=== PATIENT | female | born 1995 | race African-American/Black ===

== ENCOUNTER 2016-11-15 12:04 | Emergency (ER) | payer OTHER ==
[~2016-11-15] VITALS: Ht 167.6 cm; Wt 85.3 kg
[~2016-11-15 12:04] MED LIST: ALBU2.5V14 IH; ALBU2.5V5 NEB; ALBU8.5H6 IH; AZIT500T PO; AZIT500T2 PO; BUDE10.2 IH; BUDE10.22 IH; FLUT9.9S NS; METH4TAB2 PO
[2016-11-15] MEDS ORDERED: IPRATRPIUM/ALBUTEROL 0.5/2.5MG 3 ML NEBU. NEB ONE (12:30)
[2016-11-15] MEDS ORDERED: predniSONE 10 MG TABLET PO ONE (12:45)
[2016-11-15] MEDS ORDERED: PRED50TA PO (12:56)
--- NOTE | 2016-11-15 12:57 | PHYS DOC ---
Past Medical History Past Medical History: Asthma Past Surgical History: No Surgical History Alcohol Use: None Drug Use: None Adult General Chief Complaint Chief Complaint: ASTHMA HPI HPI 21-year-old female presenting to the emergency department today with shortness of breath and cough. She recently got a cold. She has runny nose and head congestion sore throat and a cough. She believes is triggered her asthma and subsequently has been having worsening shortness of breath. She has used her inhaler every 4 hours today. Otherwise she reports her asthma is well- controlled and does not need use of her inhaler very often. Onset 2-3 days. Location lungs. Duration intermittent. Mildly alleviated by inhaler. Review of systems is negative for fevers chills abdominal pain nausea vomiting. She denies her cough being productive. All other review of systems is negative unless otherwise noted in history of present illness. ED course: 21-year-old female presenting to the emergency department today with worsening cough and asthma exacerbation. Vital signs he should to be mildly tachypneic on examination. The patient is saturating well on room air on triage vital signs. Initial examination shows diffuse wheezing bilaterally with prolonged expiratory phase. Otherwise exam is unremarkable. The patient was given a nebulizer in the emergency department and on reexamination she had improved. She was given oral prednisone in the emergency department and discharged home with 4 days of prednisone to follow-up with her primary care physician. The patient was then discharged home in stable condition to follow up with their primary care physician over the next 2-3 days. They were to return if their symptoms worsened or if they were concerned for any reason. Face -to-face discharge instructions and return precautions were given. Patient's questions were answered to their satisfaction. Patient is comfortable plan. Review of Systems Review of Systems SEE ABOVE. Current Medications Current Medications Current Medications Medications (Trade) Dose Ordered Sig/Jon Start Time Stop Time Status Last Admin Dose Admin Albuterol/ Ipratropium (Duoneb) 3 ml 1X ONCE 11/15/16 12:30 11/15/16 12:31 DC 11/15/16 12:46 3 ML Prednisone (Prednisone) 50 mg 1X ONCE 11/15/16 12:45 11/15/16 12:46 DC 11/15/16 12:36 50 MG Allergies Allergies Allergies Coded Allergies Type Severity Reaction Last Updated Verified No Known Drug Allergies 03/03/13 No Physical Exam Physical Exam SEE ABOVE Constitutional: Well developed, well nourished, no acute distress, non-toxic appearance. [] HENT: Normocephalic, atraumatic, bilateral external ears normal, oropharynx moist, no oral exudates, nose normal. [] Eyes: PERRLA, EOMI, conjunctiva normal, no discharge. [] Neck: Normal range of motion, no tenderness, supple, no stridor. [] Cardiovascular:Heart rate regular rhythm, no murmur [] Lungs & Thorax: SEE ABOVE Abdomen: Bowel sounds normal, soft, no tenderness, no masses, no pulsatile masses. [] Skin: Warm, dry, no erythema, no rash. [] Back: No tenderness, no CVA tenderness. [] Extremities: No tenderness, no cyanosis, no clubbing, ROM intact, no edema. [] Neurologic: Alert and oriented X 3, normal motor function, normal sensory function, no focal deficits noted. [] Psychologic: Affect normal, judgement normal, mood normal. [] Current Patient Data Vital Signs Vital Signs Date Time Temp Pulse Resp B/P (MAP) Pulse Ox O2 Delivery O2 Flow Rate FiO2 11/15/16 13:28 109 108/58 (75) 97 Room Air 11/15/16 12:10 98.7 28 98.7 EKG EKG [] Radiology/Procedures Radiology/Procedures [] Course & Med Decision Making Course & Med Decision Making Pertinent Labs and Imaging studies reviewed. (See chart for details) [] Dragon Disclaimer Dragon Disclaimer This electronic medical record was generated, in whole or in part, using a voice recognition dictation system. Departure Departure Impression: Primary Impression: Asthma exacerbation Additional Impression: URI (upper respiratory infection) Disposition: 01 HOME, SELF-CARE Condition: STABLE Referrals: DANICA HICKEY MD (PCP) Patient Instructions: Asthma Attacks, Prevention, Asthma, Adult Additional Instructions: Thank you for allowing us to participate in your care today. Followup with your primary care physician in 3 days if your symptoms do not improve. Call your Primary Doctor tomorrow and inform them of your visit today. If you do not have a primary care provider you can ask for a list of our primary care providers. Return to the emergency department you have any new or concerning findings. This should be evaluated by the primary care physician and any necessary consulting services for continued management within a few days after discharge. Return to emergency room if you have any new or concerning symptoms including but not limited to fever, chills, nausea, vomiting, intractable pain, any new rashes, chest pain, shortness of air, uncontrolled bleeding, difficulty breathing, and/or vision loss. Scripts Prednisone (PREDNISONE) 50 Mg Tablet 1 TAB PO DAILY, #4 TAB 0 Refills Start this medication tomorrow as you have received corticosteroids in the emergency department today. Prov: RACHELA PATEL MD 11/15/16 Problem Qualifiers RACHEAL PATEL MD Nov 15, 2016 12:57
[2016-11-15 13:28] VITALS: BP 108/58
== END 2016-11-15 13:56 | disposition home or self-care (01) ==
LOC: ER 12:04
DX: J45.901 Unspecified asthma with (acute) exacerbation (principal); J06.9 Acute upper respiratory infection, unspecified
CPT/HCPCS: 94250; 94640; 99283; J7512; J7620

== ENCOUNTER 2016-11-28 14:03 | Emergency (ER) | payer OTHER ==
[~2016-11-28] VITALS: Ht 167.6 cm; Wt 85.3 kg
[~2016-11-28 14:03] MED LIST changes: +PRED50TA PO
[2016-11-28 15:05] VITALS: BP 136/72
[2016-11-28] MEDS ORDERED: IBUP-1060 PO (15:35)
[2016-11-28] MEDS ORDERED: AMOX875T PO (15:35)
--- NOTE | 2016-11-28 15:35 | PHYS DOC ---
Past Medical History Past Medical History: Asthma Past Surgical History: No Surgical History Alcohol Use: None Drug Use: None Adult General Chief Complaint Chief Complaint: SORE THROAT HPI HPI Patient is a 21 year old female with history of asthma who presents today with sore throat and bilateral ear pain that began 3 days ago. Patient denies any fever. Denies any coughing or congestion. PCP Dr. Trudy Hickey Review of Systems Review of Systems Constitutional: Denies fever or chills [] Eyes: Denies change in visual acuity, redness, or eye pain [] HENT: sore throat and ear pain bilaterally. Denies nasal congestion Respiratory: Denies cough or shortness of breath [] Cardiovascular: No additional information not addressed in HPI [] GI: Denies abdominal pain, nausea, vomiting, bloody stools or diarrhea [] : Denies dysuria or hematuria [] Musculoskeletal: Denies back pain or joint pain [] Integument: Denies rash or skin lesions [] Neurologic: Denies headache, focal weakness or sensory changes [] Allergies Allergies Allergies Coded Allergies Type Severity Reaction Last Updated Verified No Known Drug Allergies 03/03/13 No Physical Exam Physical Exam Constitutional: Well developed, well nourished, no acute distress, non-toxic appearance. [] HENT: Normocephalic, atraumatic, bilateral external ears normal, oropharynx moist, no oral exudates, nose normal. [] Bilateral TM are mildly injected. Posterior pharynx with mild erythema right worse than left and exudate to the right side. +2 right anterior cervical adenopathy. Eyes: PERRLA, EOMI, conjunctiva normal, no discharge. [] Neck: Normal range of motion, no tenderness, supple, no stridor. [] Cardiovascular:Heart rate regular rhythm, no murmur [] Lungs & Thorax: Bilateral breath sounds clear to auscultation [] Abdomen: Bowel sounds normal, soft, no tenderness, no masses, no pulsatile masses. [] Skin: Warm, dry, no erythema, no rash. [] Back: No tenderness, no CVA tenderness. [] Extremities: No tenderness, no cyanosis, no clubbing, ROM intact, no edema. [] Neurologic: Alert and oriented X 3, normal motor function, normal sensory function, no focal deficits noted. [] Psychologic: Affect normal, judgement normal, mood normal. [] Current Patient Data Vital Signs Vital Signs Date Time Temp Pulse Resp B/P (MAP) Pulse Ox O2 Delivery O2 Flow Rate FiO2 11/28/16 15:05 98.3 108 16 98 Room Air 98.3 EKG EKG [] Radiology/Procedures Radiology/Procedures [] Course & Med Decision Making Course & Med Decision Making Pertinent Labs and Imaging studies reviewed. (See chart for details) Patient's physical exam consistent with tonsillitis and otitis media. Discharged with amoxicillin for 10 days. Discharged with ibuprofen. Saltwater gargles recommended. Follow-up with PCP in 1-2 weeks. Provided return precautions and discharged in stable condition. Dragon Disclaimer Dragon Disclaimer This electronic medical record was generated, in whole or in part, using a voice recognition dictation system. Departure Departure Impression: Primary Impression: Otitis media Additional Impression: Acute tonsillitis Disposition: 01 HOME, SELF-CARE Condition: STABLE Referrals: DANICA HICKEY MD (PCP) Follow-up with your doctor in one week Patient Instructions: Otitis Media, Adult, Tonsillitis, [id number] Additional Instructions: You were seen for an ear infection as well as throat infection. Please complete your antibiotics. Take Tylenol/Motrin for pain or fever. Use saltwater gargles as needed. Follow-up with your doctor in one week. Scripts Ibuprofen (IBUPROFEN) 800 Mg Tablet 800 MG PO PRN Q6HRS Y for INFLAMMATION, #20 TAB Prov: CHANDLER HOUSE APRN 11/28/16 Amoxicillin (AMOXICILLIN) 875 Mg Tablet 1 TAB PO BID, #20 TAB Prov: CHANDELR HOUSE APRN 11/28/16 Problem Qualifiers Primary Impression: Otitis media Otitis media type: other nonsuppurative Chronicity: acute Laterality: bilateral Recurrence: not specified as recurrent Qualified Codes: H65.193 - Other acute nonsuppurative otitis media, bilateral Additional Impression: Acute tonsillitis Pharyngitis/tonsillitis etiology: unspecified etiology Qualified Codes: J03.90 - Acute tonsillitis, unspecified CHANDLER HOUSE APRN Nov 28, 2016 15:35
[2016-11-29 08:05] LABS: NEGATIVE OBC STREP NEG; POSITIVE OBC STREP POS
== END 2016-11-28 15:40 | disposition home or self-care (01) ==
LOC: ER 14:03
DX: H65.193 Other acute nonsuppurative otitis media, bilateral (principal); J03.90 Acute tonsillitis, unspecified; J45.909 Unspecified asthma, uncomplicated
CPT/HCPCS: 87070; 87880; 99283

== ENCOUNTER 2016-11-30 07:25 | Emergency (ER) | payer OTHER ==
[~2016-11-30] VITALS: Ht 167.6 cm; Wt 84.8 kg
[~2016-11-30 07:25] MED LIST changes: +AMOX875T PO; +IBUP-1060 PO
[2016-11-30 07:36] VITALS: BP 141/74
[2016-11-30] MEDS ORDERED: LIDOCAINE 2% VISCOUS 15 ML SOLUTION. SWSW ONE (07:45)
[2016-11-30] MEDS ORDERED: KETOROLAC 60 MG/2 ML INJ. IM ONE (07:45)
[2016-11-30] MEDS ORDERED: DEXAMETHASONE SOD PHOS 20 MG/5 ML VIAL. IM ONE (07:45)
[2016-11-30] MEDS ORDERED: PRED50TA PO (08:02)
[2016-11-30] MEDS ORDERED: HYDR15SO4 PO (08:02)
--- NOTE | 2016-11-30 08:02 | PHYS DOC ---
Past Medical History Past Medical History: Asthma Past Surgical History: No Surgical History Alcohol Use: None Drug Use: None Adult General Chief Complaint Chief Complaint: OTHER COMPLAINTS HPI HPI Patient is a 21 year old female with a history of asthma who presents today with sore throat and bilateral ear pain that began 4 days ago. Patient was seen in the ED 3 days ago by me and was diagnosed with tonsillitis and otitis media. She states her symptoms have gotten worse. Patient denies any fever. She is currently on amoxicillin. Review of Systems Review of Systems Constitutional: Denies fever or chills [] Eyes: Denies change in visual acuity, redness, or eye pain [] HENT: Bilateral ear pain and sore throat Respiratory: Denies cough or shortness of breath [] Cardiovascular: No additional information not addressed in HPI [] GI: Denies abdominal pain, nausea, vomiting, bloody stools or diarrhea [] : Denies dysuria or hematuria [] Musculoskeletal: Denies back pain or joint pain [] Integument: Denies rash or skin lesions [] Neurologic: Denies headache, focal weakness or sensory changes [] Current Medications Current Medications Current Medications Medications (Trade) Dose Ordered Sig/Jon Start Time Stop Time Status Last Admin Dose Admin Dexamethasone Sodium Phosphate (Decadron) 10 mg 1X ONCE 11/30/16 07:45 11/30/16 07:46 DC Ketorolac Tromethamine (Toradol Im) 60 mg 1X ONCE 11/30/16 07:45 11/30/16 07:46 DC Lidocaine HCl (Viscous Lidocaine) 15 ml 1X ONCE 11/30/16 07:45 11/30/16 07:46 DC Allergies Allergies Allergies Coded Allergies Type Severity Reaction Last Updated Verified No Known Drug Allergies 03/03/13 No Physical Exam Physical Exam Constitutional: Well developed, well nourished, no acute distress, non-toxic appearance. [] HENT: Normocephalic, atraumatic, bilateral external ears normal, oropharynx moist, no oral exudates, nose normal. [] Bilateral TM are mildly injected. +2 right tonsil with trace exudate. +2 anterior cervical adenopathy Eyes: PERRLA, EOMI, conjunctiva normal, no discharge. [] Neck: Normal range of motion, no tenderness, supple, no stridor. [] Cardiovascular:Heart rate regular rhythm, no murmur [] Lungs & Thorax: Bilateral breath sounds clear to auscultation [] Abdomen: Bowel sounds normal, soft, no tenderness, no masses, no pulsatile masses. [] Skin: Warm, dry, no erythema, no rash. [] Back: No tenderness, no CVA tenderness. [] Extremities: No tenderness, no cyanosis, no clubbing, ROM intact, no edema. [] Neurologic: Alert and oriented X 3, normal motor function, normal sensory function, no focal deficits noted. [] Psychologic: Affect normal, judgement normal, mood normal. [] Current Patient Data Vital Signs Vital Signs Date Time Temp Pulse Resp B/P (MAP) Pulse Ox O2 Delivery O2 Flow Rate FiO2 11/30/16 07:36 98.5 118 20 98 Room Air 98.5 EKG EKG [] Radiology/Procedures Radiology/Procedures [] Course & Med Decision Making Course & Med Decision Making Pertinent Labs and Imaging studies reviewed. (See chart for details) Patient is in the ED with sore throat and bilateral ear pain. She was seen in the ED by me 2 days ago and was diagnosed with tonsillitis and otitis media. She was put on amoxicillin. She feels her symptoms are getting worse. She is only taking amoxicillin for 2 days. On physical exam she still has a large tonsil and chest exudate on the right side. She is afebrile. She was given Decadron injection and Toradol IM in the ED. She was discharged with instructions to continue taking amoxicillin. I discharged her with prednisone, lidocaine viscous and Vicoprofen. Dragon Disclaimer Dragon Disclaimer This electronic medical record was generated, in whole or in part, using a voice recognition dictation system. Departure Departure Impression: Primary Impression: Otitis media Additional Impression: Acute tonsillitis Disposition: 01 HOME, SELF-CARE Condition: STABLE Referrals: DANICA HICKEY MD (PCP) follow up with your doctor in 1 week Patient Instructions: Otitis Media, Adult, Tonsillitis, [id number] Additional Instructions: You were seen for acute tonsillitis and ear infection. Continue taking the amoxicillin we prescribed a couple days ago. Take the rest of the medications as prescribed. Use saltwater gargles as needed. Continue taking ibuprofen as needed for pain or fever. Come back to the ED if symptoms worsen otherwise follow-up with your doctor in the next 7 days. Scripts Prednisone (PREDNISONE) 50 Mg Tablet 1 TAB PO DAILY, #4 TAB Prov: CHANDLER HOUSE RAMIRO 11/30/16 Hydrocodone Bit/Acetaminophen (HYDROCODONE-APAP 7.5-325/15 SOLN ) 15 Ml Solution 15 ML PO PRN Q6HRS Y for PAIN, #100 ML 0 Refills Prov: CHANDLER HOUSE RAMIRO 11/30/16 Problem Qualifiers Primary Impression: Otitis media Otitis media type: other nonsuppurative Chronicity: acute Laterality: bilateral Recurrence: not specified as recurrent Qualified Codes: H65.193 - Other acute nonsuppurative otitis media, bilateral Additional Impression: Acute tonsillitis Pharyngitis/tonsillitis etiology: unspecified etiology Qualified Codes: J03.90 - Acute tonsillitis, unspecified LACYCHANDLER RUBIO Nov 30, 2016 08:02
== END 2016-11-30 08:14 | disposition home or self-care (01) ==
LOC: ER 07:25
DX: J03.90 Acute tonsillitis, unspecified (principal); H65.193 Other acute nonsuppurative otitis media, bilateral; J45.909 Unspecified asthma, uncomplicated
CPT/HCPCS: 96372; 99284; J1100; J1885

== ENCOUNTER 2016-12-03 10:23 | Emergency (ER) | payer OTHER ==
[~2016-12-03] VITALS: Ht 167.6 cm; Wt 84.8 kg
[~2016-12-03 10:23] MED LIST changes: +HYDR15SO4 PO
[2016-12-03] MEDS ORDERED: IV NORMAL SALINE 1000ML BAG 1,000 ML IV ONE (11:15)
[2016-12-03] MEDS ORDERED: DEXAMETHASONE SOD PHOS 20 MG/5 ML VIAL. IV ONE (11:15)
[2016-12-03] MEDS ORDERED: ASPIRIN 325 MG TABLET PO ONE (11:15)
--- NOTE | 2016-12-03 11:56 | RAD ---
EXAM: CHEST 1 VIEW History: Mid chest pain COMPARISON: 07/04/2016 TECHNIQUE: Single portable radiograph of the chest FINDINGS: The cardiac silhouette is unremarkable. The lungs are clear bilaterally. The costophrenic sulci are clear and well demarcated. IMPRESSION: No radiographic evidence of an acute cardiopulmonary process.
[2016-12-03 11:57] LABS: BASO # 0.1 x10^3/uL (0.0-0.2); BASO % 1 % (0-3); EOS % 1 % (0-3); HEMATOCRIT 38.9 % (36.0-47.0); HEMOGLOBIN 12.9 g/dL (12.0-15.5); LYMPH # 3.2 x10^3/uL (1.0-4.8); LYMPH % 41 % (24-48); MEAN CORPUSCULAR HEMOGLOBIN 28 pg (25-35); MEAN CORPUSCULAR HGB CONC 33 g/dL (31-37); MEAN CORPUSCULAR VOLUME 85 fL (79-100); MONO % 9 % (0-9); NEUT % 49 % (31-73); PLATELET COUNT 321 x10^3/uL (140-400); RED BLOOD COUNT 4.58 x10^6/uL (3.50-5.40); WHITE BLOOD COUNT 7.9 x10^3/uL (4.0-11.0)
[2016-12-03] MEDS ORDERED: diphenhydrAMINE 50 MG/ML VIAL IVP ONE (12:00)
[2016-12-03 12:02] LABS: BILIRUBIN,URINE NEGATIVE (NEG); GLUCOSE,URINE NEGATIVE (NEG); NITRITE,URINE NEGATIVE (NEG); PH,URINE 6.5; PROTEIN,URINE NEGATIVE (NEG-TRACE); UROBILINOGEN,URINE 0.2 mg/dL (0.2 mg/dL)
[2016-12-03 12:18] LABS: BACTERIA,URINE FEW /HPF (0-FEW); RBC,URINE OCC /HPF (0-2); SQUAMOUS EPITHELIAL CELL,UR MANY /LPF; YEAST,URINE PRESENT /HPF
[2016-12-03] MEDS ORDERED: IOHEXOL 300 MG/ML 75 ML VIAL IV ONE (12:30)
[2016-12-03 12:58] LABS: ALBUMIN 2.9 g/dL (3.4-5.0); ALBUMIN/GLOBULIN RATIO 0.7 (1.0-1.7); CALCIUM 8.6 mg/dL (8.5-10.1); CREATININE 0.7 mg/dL (0.6-1.0); GFR 126.6; TOTAL BILIRUBIN 0.4 mg/dL (0.2-1.0)
[2016-12-03 13:00] LABS: POTASSIUM 2.8 mmol/L (3.5-5.1)
--- NOTE | 2016-12-03 13:04 | RAD ---
EXAM: CT neck soft tissues with contrast HISTORY: Right neck pain, tonsillitis. TECHNIQUE: Computed tomography of the neck soft tissues was performed after the intravenous administration of 75 mL Isovue-370. COMPARISON: None. FINDINGS: Images of the lung apices reveal no acute abnormality. Soft tissue density in the anterior mediastinal fat is most likely a thymic remnant. Bone windows reveal no suspicious lesions. The pharyngeal tonsils are enlarged bilaterally, narrowing the oropharyngeal airway. The adenoids are moderately enlarged. There is no nonenhancing collection suggestive of abscess or phlegmon. There is no clear retropharyngeal swelling. There are prominent lymph nodes on the right greater the left, likely reactive in the setting. One right jugulodigastric node measures 2.0 x 1.2 cm. The parotid glands and submandibular glands are unremarkable. The thyroid gland reveals no focal lesions. IMPRESSION: 1. Bilateral pharyngeal tonsillar enlargement is consistent with pharyngitis/tonsillitis. No evidence of abscess or phlegmon. 2. Prominent cervical lymph nodes are likely reactive in this setting. Clinical follow-up to resolution is recommended. One or more of the following individualized dose reduction techniques were utilized for this examination: 1. Automated exposure control. 2. Adjustment of the mA and/or kV according to patient size. 3. Use of iterative reconstruction technique.
[2016-12-03] MEDS ORDERED: POTASSIUM CHLORIDE 20 MEQ/15 ML ORAL LIQUID. PO ONE (13:30)
[2016-12-03] MEDS ORDERED: FLUCONAZOLE 100 MG TABLET. PO ONE (13:45)
[2016-12-03] MEDS ORDERED: IBUP-1060 PO (14:05)
[2016-12-03] MEDS ORDERED: METH4TAB2 PO (14:05)
[2016-12-03] MEDS ORDERED: CLIN150C14 PO (14:05)
--- NOTE | 2016-12-03 14:05 | PHYS DOC ---
Past Medical History Past Medical History: Asthma Past Surgical History: No Surgical History Alcohol Use: None Drug Use: None Adult General Chief Complaint Chief Complaint: SORE THROAT HPI HPI Patient is a 21 year old female with history of asthma who presents today complaining of a sore throat and enlarged tonsils that she's had since 28 November 2016. Patient is also complaining of chest pain worse on deep breaths. Patient unable to rate her pain but states her pain is stemming from a sore throat pain going into her chest. She was seen in the ED on November 28 by me and was given prescription for amoxicillin which is still taking. She came back on November 30 complaining of pain when she swallows. We encourage her to continue taking amoxicillin and gave her a shot of Decadron send her home with prednisone. Patient states the symptoms have improved but now she has developed chest pain that she believes is coming from her throat. She states her tonsils are not as swollen but she feels the infection has not cleared up as quickly as she wanted it to. Patient describes her chest pain as sharp. Review of Systems Review of Systems Constitutional: Denies fever or chills [] Eyes: Denies change in visual acuity, redness, or eye pain [] HENT: Enlarged tonsils with sore throat []Denies nasal congestion Respiratory: Denies cough or shortness of breath [] Cardiovascular: chest pain GI: Denies abdominal pain, nausea, vomiting, bloody stools or diarrhea [] : Denies dysuria or hematuria [] Musculoskeletal: Denies back pain or joint pain [] Integument: Denies rash or skin lesions [] Neurologic: Denies headache, focal weakness or sensory changes [] Endocrine: Denies polyuria or polydipsia [] Current Medications Current Medications Current Medications Medications (Trade) Dose Ordered Sig/Jon Start Time Stop Time Status Last Admin Dose Admin Aspirin (Caity Aspirin) 325 mg 1X ONCE 12/03/16 11:15 12/03/16 11:16 DC 12/03/16 11:44 325 MG Dexamethasone Sodium Phosphate (Decadron) 10 mg 1X ONCE 12/03/16 11:15 12/03/16 11:16 DC 12/03/16 11:44 10 MG Diphenhydramine HCl (Benadryl) 25 mg 1X ONCE 12/03/16 12:00 12/03/16 12:01 DC 12/03/16 11:59 25 MG Fluconazole (Diflucan) 150 mg 1X ONCE 12/03/16 13:45 12/03/16 13:46 DC 12/03/16 14:17 150 MG Iohexol (Omnipaque 300 Mg/ml) 75 ml 1X ONCE 12/03/16 12:30 12/03/16 12:31 DC 12/03/16 12:32 75 ML Potassium Chloride (KCl Oral Soln) 40 meq 1X ONCE 12/03/16 13:30 12/03/16 13:31 DC 12/03/16 14:16 40 MEQ Sodium Chloride 1,000 ml @ 1,000 mls/hr 1X ONCE 12/03/16 11:15 12/03/16 12:14 DC 12/03/16 11:44 1,000 MLS/HR Allergies Allergies Allergies Coded Allergies Type Severity Reaction Last Updated Verified No Known Drug Allergies 03/03/13 No Physical Exam Physical Exam Constitutional: Well developed, well nourished, no acute distress, non-toxic appearance. [] HENT: Normocephalic, atraumatic, bilateral external ears normal, oropharynx moist, no oral exudates, nose normal. [] +1 tonsils with no erythema no barely any exudate +1 anterior cervical adenopathy. Eyes: PERRLA, EOMI, conjunctiva normal, no discharge. [] Neck: Normal range of motion, no tenderness, supple, no stridor. [] Cardiovascular:Heart rate regular rhythm, no murmur [] Lungs & Thorax: Bilateral breath sounds clear to auscultation [] Abdomen: Bowel sounds normal, soft, no tenderness, no masses, no pulsatile masses. [] Skin: Warm, dry, no erythema, no rash. [] Back: No tenderness, no CVA tenderness. [] Extremities: No tenderness, no cyanosis, no clubbing, ROM intact, no edema. [] Neurologic: Alert and oriented X 3, normal motor function, normal sensory function, no focal deficits noted. [] Psychologic: Affect normal, judgement normal, mood normal. [] Current Patient Data Vital Signs Vital Signs Date Time Temp Pulse Resp B/P (MAP) Pulse Ox O2 Delivery O2 Flow Rate FiO2 12/03/16 14:06 88 146/95 (112) 98 Room Air 12/03/16 13:08 20 12/03/16 10:40 98.5 98.5 Lab Values Laboratory Tests Test 12/03/16 11:50 12/03/16 11:51 12/03/16 12:25 White Blood Count 7.9 x10^3/uL (4.0-11.0) Red Blood Count 4.58 x10^6/uL (3.50-5.40) Hemoglobin 12.9 g/dL (12.0-15.5) Hematocrit 38.9 % (36.0-47.0) Mean Corpuscular Volume 85 fL (79-100) Mean Corpuscular Hemoglobin 28 pg (25-35) Mean Corpuscular Hemoglobin Concent 33 g/dL (31-37) Red Cell Distribution Width 13.0 % (11.5-14.5) Platelet Count 321 x10^3/uL (140-400) Neutrophils (%) (Auto) 49 % (31-73) Lymphocytes (%) (Auto) 41 % (24-48) Monocytes (%) (Auto) 9 % (0-9) Eosinophils (%) (Auto) 1 % (0-3) Basophils (%) (Auto) 1 % (0-3) Neutrophils # (Auto) 3.9 x10^3uL (1.8-7.7) Lymphocytes # (Auto) 3.2 x10^3/uL (1.0-4.8) Monocytes # (Auto) 0.7 x10^3/uL (0.0-1.1) Eosinophils # (Auto) 0.0 x10^3/uL (0.0-0.7) Basophils # (Auto) 0.1 x10^3/uL (0.0-0.2) Urine Collection Type Unknown Urine Color Yellow Urine Clarity Clear Urine pH 6.5 Urine Specific [place] 1.010 Urine Protein Negative mg/dL (NEG-TRACE) Urine Glucose (UA) Negative mg/dL (NEG) Urine Ketones (Stick) Negative mg/dL (NEG) Urine Blood Moderate (NEG) Urine Nitrite Negative (NEG) Urine Bilirubin Negative (NEG) Urine Urobilinogen Dipstick 0.2 mg/dL (0.2 mg/dL) Urine Leukocyte Esterase Trace (NEG) Urine RBC Occ /HPF (0-2) Urine WBC 1-4 /HPF (0-4) Urine Squamous Epithelial Cells Many /LPF Urine Bacteria Few /HPF (0-FEW) Urine Mucus Slight /LPF Urine Yeast Present /HPF POC Urine HCG, Qualitative Hcg negative (Negative) Sodium Level 144 mmol/L (136-145) Potassium Level 2.8 mmol/L (3.5-5.1) *L Chloride Level 108 mmol/L (98-107) H Carbon Dioxide Level 27 mmol/L (21-32) Anion Gap 9 (6-14) Blood Urea Nitrogen 10 mg/dL (7-20) Creatinine 0.7 mg/dL (0.6-1.0) Estimated GFR (Cockcroft-Gault) 126.6 BUN/Creatinine Ratio 14 (6-20) Glucose Level 87 mg/dL (70-99) Calcium Level 8.6 mg/dL (8.5-10.1) Total Bilirubin 0.4 mg/dL (0.2-1.0) Aspartate Amino Transferase (AST) 12 U/L (15-37) L Alanine Aminotransferase (ALT) 13 U/L (14-59) L Alkaline Phosphatase 71 U/L (46-116) Total Protein 7.0 g/dL (6.4-8.2) Albumin 2.9 g/dL (3.4-5.0) L Albumin/Globulin Ratio 0.7 (1.0-1.7) L Lipase 124 U/L (73-393) Laboratory Tests 12/03/16 11:50 Laboratory Tests 12/03/16 12:25 EKG EKG [] Radiology/Procedures Radiology/Procedures []PROCEDURE: CT SOFT TISSUE NECK W/CONTRAST EXAM: CT neck soft tissues with contrast HISTORY: Right neck pain, tonsillitis. TECHNIQUE: Computed tomography of the neck soft tissues was performed after the intravenous administration of 75 mL [id number]. COMPARISON: None. FINDINGS: Images of the lung apices reveal no acute abnormality. Soft tissue density in the anterior mediastinal fat is most likely a thymic remnant. Bone windows reveal no suspicious lesions. The pharyngeal tonsils are enlarged bilaterally, narrowing the oropharyngeal airway. The adenoids are moderately enlarged. There is no nonenhancing collection suggestive of abscess or phlegmon. There is no clear retropharyngeal swelling. There are prominent lymph nodes on the right greater the left, likely reactive in the setting. One right jugulodigastric node measures 2.0 x 1.2 cm. The parotid glands and submandibular glands are unremarkable. The thyroid gland reveals no focal lesions. IMPRESSION: 1. Bilateral pharyngeal tonsillar enlargement is consistent with pharyngitis/tonsillitis. No evidence of abscess or phlegmon. 2. Prominent cervical lymph nodes are likely reactive in this setting. Clinical follow-up to resolution is recommended. One or more of the following individualized dose reduction techniques were utilized for this examination: 1. Automated exposure control. 2. Adjustment of the mA and/or kV according to patient size. 3. Use of iterative reconstruction technique. DICTATED and SIGNED BY: REMY PARIKH MD DATE: 12/03/16 0160 CC: CHANDLER HOUSE APRN; NO PCP ~ Course & Med Decision Making Course & Med Decision Making Pertinent Labs and Imaging studies reviewed. (See chart for details) This is a 21-year-old female patient presenting to the ED with ongoing sore throat and enlarged lymph nodes since November 28, 2016. On that day she was seen in the ED given a prescription for amoxicillin which is still taking. She feels the infection is not clearing as quickly as she wants. She was also back in the ED on November 30, 2016 and was given prescription for prednisone and a Decadron injection in the ED. She is currently complaining of chest pain which she states is coming from her sore throat. CBC with normal WBC. CMP with potassium of 2.8, patient was given oral potassium replacement in the ED and encouraged to increase her dietary potassium intake through bananas, she stated she is allergic to all fruits, recommended sweet potatoes [id number] potassium tablets. Urine is negative for infection. CT of the neck soft tissue was noted for tonsillitis otherwise no abscess. Try to encourage patient to continue taking amoxicillin to completion but she feels the infection is not clearing up as quickly. I switched her to clindamycin. I recommended she follows up with [facility] in the course of this week or next week. She was also noted for yeast in her urine and given fluconazole in the ED. Dragon Disclaimer Dragon Disclaimer This electronic medical record was generated, in whole or in part, using a voice recognition dictation system. Departure Departure Impression: Primary Impression: Acute tonsillitis Additional Impressions: Hypokalemia Yeast infection Cough Chest pain Disposition: 01 HOME, SELF-CARE Condition: STABLE Referrals: NO PCP (PCP) follow up with ENT please call [facility] [place] [phone] Patient Instructions: Chest Pain (Nonspecific), Cough, Adult, [id number], Tonsillitis, Yeast Infection of the Skin, [id number] Additional Instructions: You were seen for ongoing tonsillitis which is stated it's improving. I switched you to a different antibiotics hopefully this clears the infection but you have to take it for 10 days. Your potassium was low, increase your dietary potassium intake through foods like bananas, sweet potatoes. You can also take the potassium tablets and i sent you home with. Follow up with [facility] by calling the mainline and requesting an appointment with the ENT doctor, call them today. Your CT today was noted for tonsillitis which you are being treated for otherwise not acute findings. Scripts Ibuprofen (IBUPROFEN) 800 Mg Tablet 800 MG PO PRN Q6HRS Y for INFLAMMATION, #30 TAB Prov: CHANDLER HOUSE APRN 12/03/16 Methylprednisolone (MEDROL) 4 Mg Tab.ds.pk 1 PKG PO UD, #1 PKG Prov: CHANDLER HOUSE APRN 12/03/16 Clindamycin Hcl (CLINDAMYCIN HCL) 150 Mg Capsule 3 CAP PO TID, #90 CAP Prov: CHANDLER HOUSE APRN 12/03/16 Problem Qualifiers Primary Impression: Acute tonsillitis Pharyngitis/tonsillitis etiology: unspecified etiology Qualified Codes: J03.90 - Acute tonsillitis, unspecified Additional Impressions: Chest pain Chest pain type: chest pain on breathing Qualified Codes: R07.1 - Chest pain on breathing CHANDLER HOUSE APRN Dec 03, 2016 14:05
[2016-12-03 14:06] VITALS: BP 146/95
== END 2016-12-03 14:25 | disposition home or self-care (01) ==
LOC: ER 10:23
DX: J03.90 Acute tonsillitis, unspecified (principal); E87.6 Hypokalemia; B37.9 Candidiasis, unspecified; R07.9 Chest pain, unspecified; J45.909 Unspecified asthma, uncomplicated
CPT/HCPCS: 36415; 70491; 71010; 80053; 81001; 81025; 83690; 85025; 96361; 96374; 96375; 99285; J1100; J1200; J7030; Q9967